=== PATIENT | female | born 1955 | race African-American/Black ===

== ENCOUNTER → 2017-12-20 | Outpatient (CLI) | payer OTHER ==
[~2017-12-20] MED LIST: ACETAMINOPHEN; ACETAMINOPHEN325 M1 PO; ADULT LOW DOSE81 MG; ADULT LOW DOSE81 MG PO; ALDACTONE25 MG PO; AMLODIPINE; APAP500 PO; APPLE CIDER VI300 MG PO; APPLE CIDER VINEGAR PO; ASPIRIN81 M2 PO; ATORVASTATIN CA10 MG PO; AUGMENTIN 875875 M1 PO; AUGMENTIN 875875 MG PO; AZITHROMYCIN 2250 MG PO; BAYER CHEWABLE81 MG PO; CALCIUM; CALCIUM 500 +1 EAC5; CALCIUM PO; CALMAG THINS T1 EACH PO; CEFDINIR300 MG PO; CHLORTHALIDONE25 MG; CHOLESTEROL MED?; CIPROFLOXIN HC2.5 M1 OPHTHALMIC; COLACE 100 MG100 MG; COZAAR 25 MG TA25 M2 PO; COZAAR 50 MG TA50 M2 PO; DULCOLAX STOOL100 MG PO; ENALAPRIL MALEA10 M1; ENALAPRIL MALEA10 M1 PO; ENALAPRIL MALEA10 M2 PO; FISH OIL 1,0001 EAC5 PO; FLONASE 0.05%50 MCG NASAL; FLOVENT DISKU250 MCG INH; FLOVENT HFA 1110 MCG INH; FUROSEMIDE; GLUCOPHAGE XR500 MG; GLUCOPHAGE500 MG PO; GLYCOLAX POWDER17 G1 PO; HUMALOG100 UNIT/1; HUMALOG100 UNIT/1 SUBQ; HYDRALAZINE 2525 MG PO; IBUPROFEN 800800 M1 PO; IRON; KLOR-CON 1010 MEQ PO; LANTUS; LANTUS SUBQ; LEVOTHYROXIN0.025 MG PO; LEVOTHYROXINE0.2 M1; LEVOTHYROXINE0.2 M1 PO; LIPITOR 10 MG10 M1 PO; LIPITOR10 MG PO; LISINOPRIL20 MG PO; LOPRESSOR; LOPRESSOR25 PO; METOPROLOL SUCC25 M1 PO; MIRALAX17 GM PO; MUCINEX TA600 MG/TA2 PO; NAPROSYN500 MG PO; NEURONTIN 300M300 M2 PO; NORCO 5-325 TA1 EACH PO; NORFLEX100 MG PO; NORTRIPTYLINE HCL PO; NORVASC5 MG PO; OXYBUTYNIN 5 MG5 M1; OXYCODON-ACETA1 EAC1 PO; PERCOCET 5-3251 EACH PO; PRENATAL; PROTONIX40 M1 PO; ROBAXIN 750 MG750 M1 PO; SPIRONOLACTONE25 M1 PO; SYNTHROID25 MCG PO; TORSEMIDE20 MG PO; TRAMADOL; TRAMADOL 50 MG50 MG PO; TRAMADOL-ACETA1 EACH PO; TRINATE TABLET1 TAB PO; TYLENOL EX-STR500 M2 PO; VALIUM5 MG PO; VIT D PO; VITAMIN B-12500 MCG PO; VITAMIN D-32000 UNIT PO; VITAMIN E100 UNIT PO; VITAMIN E1000 UNIT PO; XANAX 0.5 MG0.5 M1 PO; XANAX 0.5 MG0.5 MG PO; ZINC PO; ZOCOR 20 MG TAB20 M1; ZOLOFT50 MG PO; [UNRECOGNIZED DRUG - OTHER] PO
== END ==
LOC: RAD 14:41
DX: I51.7 Cardiomegaly (principal); J18.9 Pneumonia, unspecified organism; J98.11 Atelectasis